=== PATIENT | female | born 1985 ===

== ENCOUNTER 2018-07-23 06:50 | Inpatient (IN) ==
--- NOTE | 2018-07-23 05:16 | OB/GYN History & Physical ---
Date of Encounter: 07/23/18 Time of Encounter: 05:12 Assessment and Plan (1) 40 weeks gestation of Current visit: Yes Status: Acute admitted for delivery (2) Group B Streptococcus carrier state affecting Current visit: Yes Status: Acute Patient declines GBS prophylaxis Patient was retested on 07/11/2018 and result was negative: patient aware of risks and nursery notified History of Present Illness Chief complaint: spontaneous labor HPI: Ms. Unger is a 33 year old female at 40w4d with EDC 07/22/2018 by LMP presents to labor and delivery with complaints of contractions that started earlier this evening. Patient denies LOF or VB. Patient reports good movement. Patient was a late transfer of care to Dr. Millan due to a move from [place]. Patient desires very limited interventions. Blood type: O Positive Rubella:Immune Hep B: Nonreactive GBS: Positive patient declines GBS prophylaxis Past Med Surg Social Fam HX - Past Medical History Source: patient Medical history: no medical history Psychiatric history: no psych history - Past Surgical History Surgical History: no surgical history - Social History Smoking Status: Never smoker - Family History Mother Hx Family Cardiac Disorders: No Hx Family Respiratory Disorders: No Hx Family Cancer: No Hx Family GI Disorders: No Hx Family Genitourinary Disorders: No Hx Family Endocrine Disorder: No Hx Family Musculoskeletal Disorders: No Hx Family Neuromuscular Disorders: No Hx Family Neurologic Disorders: No Hx Family HEENT Disorders: No Hx Family Autoimmune Disorders: No Hx Family Reproductive Disorders: No Hx Family Psychosocial Disorders: No Hx Family Medical Disorders: No (no history reported) Obstetrical History - Pregnancies : 3 Para: 2 Term: 2 : 0 Ab's: 0 Livin Review of System OB - Constitutional Constitutional ROS IM: no chills, no headache(s) - Respiratory Respiratory: no cough - Gastrointestinal Gastrointestinal: nausea, no abdominal pain, no diarrhea, no heartburn, no vomiting - Genitourinary Genitourinary: no abnormal vaginal bleeding, no dysuria, no flank pain, no urinary frequency, no urinary urgency, no vaginal discharge, no vaginal odor, no vaginal pruritis Exam - Constitutional Constitutional: well developed, well nourished, no acute distress, average body habitus - HEENT HEENT: Normocephaly, Mucus Membranes Moist - Neck Neck exam: full ROM, supple - Lungs Respiratory exam: CTAB - Cardiovascular Cardiovascular exam: RRR, +S1, +S2 - Abdomen Abdomen: Present: bowel sounds normal, gravid, non tender - Extremities Extremities exam: full ROM, normal inspection Deep Tendon Reflex Grade: 2+ Normal - Cervix Dilation: 7 (per RN) - Uterus Uterus exam: Present: normal size, normal contour - Anus/Rectum Anus/Rectum: Present: normal perianal skin - Comments Comments: FHR 125 bpm moderate variability +15x15 accels no decels noted. Irregular contr actions noted on monitor. Cat. 1 tracing Results All other labs normal. - VTE Reasons for not Prescribing Prophylaxis: Treatment not Indicated - Low risk for VTE
[~2018-07-23 06:50] MED LIST: Lidocaine/EPI 1:200k 1% PF 10 ML VIAL ONE
--- NOTE | 2018-07-23 07:01 | OB/GYN Procedure Note ---
Delivery - Delivery Date: 07/23/18 Provider: Barbara Stewart (Dr. Zelaya- Assist) Intrapartum events: precipitous labor- <3hr Delivery induction: none Delivery augmentation: rupture of membranes Delivery monitor: external FHT, external uterine Anesthesia: none Quantitated Blood Loss: 250 - (s) A Delivery Date: 07/23/18 Delivery Time: 06:11 Presentation: vertex Position: VICKI Route of delivery: Gender: Female Viability: Viable at 1 minute: 8 at 5 mins: 9 Shoulder Dystocia: not encountered Specimens collected: cord blood Placenta: spontaneous Cord: nuchal cord (nuchal cord x2- reduced at perineum), 3 umbilical vessels - Repair Episiotomy: none Laceration Description: Periurethral (hemostatic), Superficial - Complications Delivery complications: none - Disposition Mom disposition: stable in LDR disposition: stable in LDR - Comments Comments: Patient progressed to complete without epidural anesthesia. She pushed to deliver a live female infant over an intact perineum. The head delivered in VICKI position. A nuchal cord was identified at the perineum and reduced from around the neck 2. The left anterior shoulder delivered followed easily by the rest of the body. Mouth and nose were bulb suctioned. The infant was safely transferred to maternal abdomen for further care by RN and skin to skin time. After pulsation of the umbilical cord had ceased, the cord was clamped 2 and cut by the father. Cord blood was collected and sent for routine testing. Placenta was expressed intact and held for possible testing. The cervix, vagina and perineum were inspected. Bilateral hemostatic periurethral lacerations were noted. No need for suture repair. EBL was [address] Zelaya and Terry were present for delivery. - Attending Attestation I personally was in the room, gowned and gloved, with Dr. Barbara Stewart during the delivery.
[2018-07-23] MEDS ORDERED: Oxytocin 20 units/ LR 1000 mL 20 UNIT/1,000 ML BAG IVC SCH (09:13)
[2018-07-23] MEDS ORDERED: *HR* Oxytocin 10 UNIT/ML VIAL IM ONE (09:13)
[2018-07-23] MEDS ORDERED: Acetaminophen 325 MG TABLET PO PRN (09:13)
[2018-07-23] MEDS ORDERED: Ibuprofen 600 MG TABLET PO SCH (09:13)
[2018-07-23] MEDS: Prenatal Vit/FA 1 EACH TABLET PO SCH (09:51)
--- NOTE | 2018-07-24 08:09 | OB/GYN Progress Note ---
Date of Encounter: 07/24/18 Time of Encounter: 07:30 - Assessment and Plan (1) 40 weeks gestation of Current Visit: Yes Status: Acute 33yo s/p , PPD#1 1. management - DC to home today, PPD#1 as patient is meeting all milestones - voiding independently and without si/sx of UTI - HEME stable, EBL appropriate for delivery - no si/sx of infectious process, no ABx at time of delivery - pain controlled without medication(S), declines rx to home - discussed PreE si/sx to be aware of should patient become symptomatic - breast feeding, patient has PUMP at home Dispo: OK to DC patient to home today as she is meeting her milestones. NO rx sent to pharmacy as patient declines. Patient to f/u in 4 weeks for . MD AYANNA Subjective - Subjective Principal diagnosis: 34yo s/p at term, delivered spontaneously in active labor Interval history: Patient doing well this AM since delivery yesterday morning. Denies n/v/d. Reports adequate appetite, bleeding significantly improved. Passing flatus with independent voiding. Pain controlled, as patient is requiring no medication(S). Reported to have had a LEPE overnight that has since improved. Denies swelling in upper and lower extremities, no blurry vision or RUQ pain. She desires DC to home today, Pediatrics at bedside this AM to discuss DC to home with baby. GBS discussion was had with patient and si/sx to look out for was also discussed. Meeting milestones appropriately for DC. Patient declines any medication to jacqueline e. Patient reports: appetite normal, voiding normally, pain well controlled, ambulating normally : doing well Objective - Latest Vital Signs Latest vital signs: Vital Signs Temp Pulse Resp BP Pulse Ox 07/24/18 05:01 97.8 F 75 14 121/75 97 07/23/18 19:45 98.0 F 66 14 113/75 98 07/23/18 16:10 97.9 F 64 16 120/68 07/23/18 09:57 97.9 F 73 16 122/73 07/23/18 09:00 97.7 F 76 16 115/79 Intake and Output 07/23/18 07/24/18 07/24/18 23:59 07:59 15:59 Intake Total 480 / 480 Output Total 800 / 800 400 / 400 Balance -320 / -320 -400 / -400 Intake: Oral 480 / 480 Output: Urine 800 / 800 400 / 400 Other: Weight 69.309 kg Patient Weight 07/24/18 23:59 Weight 69.309 kg - Exam Extremities: Present: normal Abdomen: Present: normal appearance, soft, gravid Uterus: Present: normal, firm - Labs Labs: VSS, HDS, afebrile General: well-appearing, A&O x 3 Abdomen: soft, nonTTP, non-gravid, +BS Extremities: no swelling appreciated, normal pedal pulses bilaterally
[2018-07-24] MEDS: Prenatal Vit/FA 1 EACH TABLET PO SCH (08:11)
[2018-07-24 08:14] VITALS: BP 134/83
--- NOTE | 2018-07-24 08:17 | Discharge Summary ---
Date of Encounter: 07/24/18 Time of Encounter: 08:15 - Discharge Diagnosis (1) 40 weeks gestation of Priority: Primary Status: Acute Comments: Uncomplicated at term, milestones met prior to DC to home. - Discharge Medications Home Medications: Adult Probiotic 07/23/18 [History] Caplet 07/23/18 [History] Vitamin C 07/23/18 [History] Vitamin D 07/23/18 [History] Allergies/Adverse Reactions: Allergy/AdvReac Type Severity Reaction Status Date / Time No Known Allergies Allergy Verified 07/23/18 06:44 Date of admission: 07/23/18 06:50 Primary care physician: PCP NONE Consults: 07/23/18 09:13 Consult to Biology Specimen Technician [CONS] Routine Comment: Vaginal delivery, consult needed Discharging clinician: Diane Millan Anticipated date of discharge: 07/24/18 - Patient Status Disposition: Home, Self-Care Condition: Good Functional capacity at discharge: independent ambulation Overall status at discharge: patient is progressing back to baseline - Discharge Instructions Follow Up With: NONE,PCP [Primary Care Provider] - - Diet and Activity Activity: resume usual activities as tolerated Diet: advance to your usual diet Hospital Course Reason for admission: active labor Delivery: Episiotomy: none Laceration: none Other procedures: none complications: none Discharge diagnosis: IUP at term delivered [place] baby: female Hospital course: See daily rounding note: 33yo at term presented on 07/23 in active labor and delivered spontaneously and without complication. course was uncomplicated as she was meeting all milestones prior to DC to home. Patient did not require any additional pain medication(s) or use while inpatient, declines rx to outpatient. All question(s) and concerns were discussed prior to DC to home today. Discharged to home on PPD#1. Time spent discussing smoking cessation with patient: more than 10 minutes Time Attestation: Total time spent providing and/or coordinating discharge services: Time Spent: Less than 30 minutes Exam - Constitutional Vitals: Temp Pulse Resp BP Pulse Ox 97.8 F 75 14 121/75 97 07/24/18 05:01 07/24/18 05:01 07/24/18 05:01 07/24/18 05:01 07/24/18 05:01 General appearance IM: A&O X 0 - Respiratory Respiratory exam: Present: CTAB - Cardiovascular Cardiovascular exam IM: Present: RRR - GI/Abdominal GI/Abdominal exam IM: normal bowel sounds - Rectal Rectal exam: deferred - Uterine Tone: Firm
== END 2018-07-24 11:25 | disposition home or self-care (01) | DRG 807 ==
LOC: 1NENULAB → 1NENUOBS 09:12
PROVIDERS: ADMIT Advanced Practice Midwife; ATTEND Advanced Practice Midwife